=== PATIENT | female | born 1960 | race African-American/Black ===

== ENCOUNTER 2017-09-14 12:49 | Emergency (ER) | payer MEDICAID ==
[~2017-09-14] VITALS: Ht 165.1 cm; Wt 87.3 kg
[2017-09-14] MEDS ORDERED: IBUPROFEN 800 MG TABLET PO ONE (14:45)
[2017-09-14] MEDS ORDERED: ALBUTEROL SULFATE 2.5 MG/0.5 ML NEB SOLUTION NEB ONE (14:45)
[2017-09-14] MEDS ORDERED: IPRATROPIUM BROMIDE 0.5 MG/2.5 ML NEB SOLUTION NEB ONE (14:45)
[2017-09-14] MEDS ORDERED: GuaiFENesin/D-METHORPHAN [SUGAR-FREE] 200-20MG/10 ML SYRUP UDCUP PO ONE (14:45)
[2017-09-14] MEDS ORDERED: AZITHROMYCIN 250 MG TABLET PO ONE (15:00)
[2017-09-14] MEDS ORDERED: CefTRIAXone SODIUM 1 GM/VIAL IM ONE (15:00)
[2017-09-14] MEDS ORDERED: LIDOCAINE HCL/PF 1% 2 ML VIAL IM ONE (15:00)
[2017-09-14 15:12] VITALS: BP 122/63
== END 2017-09-14 16:11 | disposition home or self-care (01) ==
LOC: EMS 12:51
DX: J18.9 Pneumonia, unspecified organism (principal); F17.200 Nicotine dependence, unspecified, uncomplicated
CPT/HCPCS: 71046; 94640; 96372; 99284; J0696; J3490; J7613

== ENCOUNTER 2019-03-27 11:00 | Emergency (ER) | payer OTHER ==
[~2019-03-27] VITALS: Ht 160 cm; Wt 80.9 kg
[2019-03-27] MEDS ORDERED: CEPHALEXIN MONOHYDRATE 500 MG CAPSULE PO ONE (12:00)
[2019-03-27] MEDS ORDERED: DEXAMETHASONE 4 MG TABLET PO ONE (12:00)
[2019-03-27] MEDS ORDERED: PRAMOXINE HCL/BENZYL ALCOHOL 1% 35 GM GEL TP ONE (12:00)
[2019-03-27 12:20] VITALS: BP 122/75
== END 2019-03-27 12:20 | disposition home or self-care (01) ==
LOC: EMS 11:01
DX: T63.441A Toxic effect of venom of bees, accidental (unintentional), initial encounter (principal); F17.210 Nicotine dependence, cigarettes, uncomplicated; Y92.89 Other specified places as the place of occurrence of the external cause
CPT/HCPCS: 99284; 99406; J8540

== ENCOUNTER 2019-12-28 16:09 | Emergency (ER) | payer OTHER ==
[~2019-12-28] VITALS: Ht 160 cm; Wt 90.0 kg
[2019-12-28 16:10] VITALS: BP 128/63
== END 2019-12-28 16:57 | disposition home or self-care (01) ==
LOC: EMS 16:12
DX: Z03.818 Encounter for observation for suspected exposure to other biological agents ruled out (principal); J06.9 Acute upper respiratory infection, unspecified; M79.10 Myalgia, unspecified site; F17.210 Nicotine dependence, cigarettes, uncomplicated; F12.90 Cannabis use, unspecified, uncomplicated; Z90.710 Acquired absence of both cervix and uterus
CPT/HCPCS: 99283; 99406; U0003

== ENCOUNTER 2020-01-09 11:38 | Emergency (ER) | payer OTHER ==
[~2020-01-09] VITALS: Ht 160 cm; Wt 88.6 kg
[2020-01-09 11:42] VITALS: BP 125/68
[2020-01-09] MEDS ORDERED: MULT-685 PO (11:50)
== END 2020-01-09 12:20 | disposition home or self-care (01) ==
LOC: EMS 11:41
DX: U07.1 COVID-19 (principal); F17.210 Nicotine dependence, cigarettes, uncomplicated; F12.90 Cannabis use, unspecified, uncomplicated
CPT/HCPCS: 99283; 99406; U0003